=== PATIENT | male | born 1980 | race Caucasian/White ===

== ENCOUNTER 2018-06-18 23:35 | Observation (INO) ==
[2018-06-18] MEDS ORDERED: 0.9 % Sodium Chloride 1,000 ML ONE (23:59)
[2018-06-19] MEDS ORDERED: Isovue-370 500 ML INFUS..BTL IV ONE (00:10)
--- NOTE | 2018-06-19 00:17 | Emergency Department Note ---
Disposition Clinical Impression: TIA (transient ischemic attack) HTN (hypertension) Qualifiers: Hypertension type: unspecified Qualified Code(s): I10 - Essential (primary) hypertension Disposition: Admitted As Inpatient Condition: Fair General Adult HPI - General Chief complaint: ED General Medical Stated complaint: "I DONT FEEL RIGHT" Time Seen by Provider: 06/19/18 00:03 Source: patient Mode of arrival: EMS Limitations: no limitations Nursing Notes Reviewed: Yes Vital Signs Reviewed: Yes - History of Present Illness HPI Narrative: 37 year old male with history of hypertension presents for evaluation of "not feeling right". Patient states that he had this similar symptom that occurred just prior to arrival by an hour ago. Notes he had a strange sensation in the back of his head. Notes that he has had difficulty with his voice. Symptoms did improve initially but then recurred while in the ED. Patient states that he feels that there is something wrong. Patient is not able to accurately describe the feeling. Denies any headache. Denies any nausea vomiting. No focal deficits or weaknesses. Patient family at bedside states that these have been difficulty with articulating his words but no slurred speech or facial droop. Patient is not a blood thinners. Patient is unaware of whether or not he took his blood pressure medication earlier today. No history of blood thinners. Pain Scale: 0 - Related Data Home Medications Medication Instructions Recorded Confirmed Esomeprazole Magnesium [Nexium] 20 mg PO DAILY 06/19/18 06/19/18 HydrOXYzine Pamoate [Vistaril] 25 mg PO Q6HR PRN 06/19/18 06/19/18 Metoprolol [Lopressor] 75 mg PO DAILY 06/19/18 06/19/18 Allergies Allergy/AdvReac Type Severity Reaction Status Date / Time No Known Allergies Allergy Verified 06/18/18 23:48 All systems ED: reviewed and negative except as stated. Constitutional: Denies: fever Cardiovascular: Denies: chest pain Respiratory: Denies: cough, dyspnea Gastrointestinal: Reports: abdominal pain. Denies: nausea, vomiting Past Medical History - Past Medical History Source: patient Medical history: Reports: GERD, hypertension Psychiatric history: Reports: no psych history - Social History Smoking Status: Never smoker Alcohol use: Reports: occasionally, recent Drug use: Reports: none Physical Exam - General Limitations: no limitations General appearance: alert, in no apparent distress - Head Head exam: atraumatic, normocephalic, normal inspection - Eye Eye exam: Present: normal appearance, PERRL, EOMI - ENT ENT exam: normal exam, mucous membranes moist - Neck Neck exam: Present: normal inspection, trachea midline - Chest Chest inspection: Present: normal inspection, symmetric chest wall rise - Respiratory Respiratory exam: Present: normal lung sounds bilaterally. Absent: respiratory distress - Cardiovascular Cardiovascular exam: Present: regular rate, normal rhythm - Abdominal Exam Abdominal exam: Absent: soft, Non-Tender, guarding, rebound - Extremities Exam Extremities exam: Present: normal inspection. Absent: pedal edema - Back Exam Back exam: Present: normal inspection - Neurological Exam Neurological exam: Present: alert, oriented X3, CN II-XII intact - Expanded Neurological Exam Patient oriented to: Present: person, place, time Speech: Present: fluid speech Cranial nerves: EOM function (II, III, IV, ): Normal, facial sensation (V): Normal, facial palsy (VII): Normal, spinal accessory function (XI): Normal, tongue deviation (XII): Normal Cerebellar function: finger to nose: Normal Motor strength - LUE: 5/5 Motor strength - RUE: 5/5 Motor strength - LLE: 5/5 Motor strength - RLE: 5/5 Sensory exam upper extremity: light touch: Normal Sensory exam lower extremity: light touch: Normal Coma Scale Eye Opening: Spontaneous Coma Scale Motor Response: Obeys Commands Coma Scale Verbal Response: Oriented Coma Scale Total: 15 - Skin Skin exam: Present: warm, dry, intact, normal color Course Course Narrative: Patient seen and examined. Patient states that symptoms were earlier today and then recurred in the ED. Notes not feeling right. Initial concerns for potential head bleed given the patient's symptoms. Stroke alert was activated. Patient NIH of 0. - Reevaluation(s) Reevaluation #1: Patient seen and examined. Patient is resting comfortably. Appears to be less agitated and restless. Patient's repeat blood pressure is improved. Patient received his home dose of metoprolol. Patient states that he does not feel that he is an alcoholic all. Typically drinks a couple beers a night Time: 01:37 - Consultations Consultation #1: Spoke with [facility] neurology who will see the patient. Time: 00:41 Consultation #2: Patient seen and examined. Time: 00:58 Vital Signs Temperature 99.1 F 06/18/18 23:41 Pulse Rate 123 06/18/18 23:41 Respiratory Rate 18 06/18/18 23:41 Blood Pressure 171/119 06/18/18 23:41 O2 Sat by Pulse Oximetry 94 06/18/18 23:41 Temperature 98.9 F 06/19/18 03:07 Pulse Rate 92 06/19/18 03:07 Respiratory Rate 16 06/19/18 03:07 Blood Pressure 151/98 06/19/18 03:07 O2 Sat by Pulse Oximetry 92 06/19/18 03:07 Oxygen Delivery Oxygen Delivery Room Air Medical Decision Making - MDM Narrative Medical decision making narrative: Patient presented for concerns of possible stroke. Stroke alert was initiated as the patient has had waxing and waning symptoms which appeared to worsen acutely in the ED. Patient was restless and agitated complaining of subjective symptoms related to the back of his head. Initial concerns for potential head bleed and stroke alert was called. Patient had a negative initial head CT. Patient did not have any slurred speech or aphasia but the patient states that he felt like he is having difficulty finding his words. [facility] neurology discussed the case with the patient. No TPA and felt that this is less likely related to a stroke but recommended observation with blood pressure control. NIH of 0. Patient's blood pressure was gradually decreased with his home blood pressure medication. Patient's labs are unremarkable clinically. Is unclear what caused the patient's symptoms earlier today however possibly related to his hypertension. Patient was not given aspirin as there was initial concerns for a bleed. Patient does metallic or use but does not appear to be in alcohol withdrawal. - Lab Data Lab results reviewed: Yes I reviewed the patient's lab results. Result diagrams: 06/19/18 00:05 Lab Results 06/19/18 06/19/18 06/19/18 Range/Units 00:05 00:05 00:05 WBC (4.3-11.1) K/mcL RBC (4.19-5.50) M/mcL Hgb (12.9-16.9) g/dL Hct (37.5-50.1) % MCV (83.0-100.0) fL MCH (28.0-33.3) pg MCHC (31.6-35.5) g/dL RDW (11.5-14.5) % Plt Count (140-400) K/mcL MPV (9.4-12.4) fL Immature Gran % (0-4) % Seg Neutrophils % % Lymphocytes % % Monocytes % % Eosinophils % % Basophils % % Neutrophils # (1.6-8.9) K/mcL Lymphocytes # (0.6-4.6) K/mcL Monocytes # (0.0-1.3) K/mcL Eosinophils # (0.0-0.6) K/mcL Basophils # (0.0-0.2) K/mcL PT 12.3 H (9.4-12.1) Seconds INR 1.1 APTT 31.8 (26.0-36.0) Seconds Total Bilirubin 0.9 (0.3-1.0) mg/dL Direct Bilirubin 0.3 H (0.0-0.2) mg/dL Indirect Bilirubin 0.6 (0.0-1.2) mg/dL AST 137 H (13-39) Units/L ALT 202 H (7-52) Units/L Alkaline Phosphatase 57 (34-104) Units/L Ammonia (16-53) mcmol/L Troponin I (< 0.04) ng/mL B-Natriuretic Peptide 25 (Less than 100) pg/mL Serum Total Protein 7.3 (6.4-8.9) g/dL Albumin 5.1 (3.5-5.7) g/dL Globulin 2.2 L (2.4-3.5) g/dL Albumin/Globulin Ratio 2.3 H (1.1-2.2) Amylase 41 (29-103) Units/L Lipase 39 (11-82) Units/L 06/19/18 06/19/18 06/19/18 Range/Units 00:05 00:05 00:05 WBC 6.9 (4.3-11.1) K/mcL RBC 5.23 (4.19-5.50) M/mcL Hgb 17.6 H (12.9-16.9) g/dL Hct 47.9 (37.5-50.1) % MCV 91.6 (83.0-100.0) fL MCH 33.7 H (28.0-33.3) pg MCHC 36.7 H (31.6-35.5) g/dL RDW 12.0 (11.5-14.5) % Plt Count 179 (140-400) K/mcL MPV 10.6 (9.4-12.4) fL Immature Gran % 0.4 (0-4) % Seg Neutrophils % 46.6 % Lymphocytes % 42.7 % Monocytes % 9.7 % Eosinophils % 0.0 % Basophils % 0.6 % Neutrophils # 3.2 (1.6-8.9) K/mcL Lymphocytes # 3.0 (0.6-4.6) K/mcL Monocytes # 0.7 (0.0-1.3) K/mcL Eosinophils # 0.0 (0.0-0.6) K/mcL Basophils # 0.0 (0.0-0.2) K/mcL PT (9.4-12.1) Seconds INR APTT (26.0-36.0) Seconds Total Bilirubin (0.3-1.0) mg/dL Direct Bilirubin (0.0-0.2) mg/dL Indirect Bilirubin (0.0-1.2) mg/dL AST (13-39) Units/L ALT (7-52) Units/L Alkaline Phosphatase (34-104) Units/L Ammonia 50 (16-53) mcmol/L Troponin I < 0.03 (< 0.04) ng/mL B-Natriuretic Peptide (Less than 100) pg/mL Serum Total Protein (6.4-8.9) g/dL Albumin (3.5-5.7) g/dL Globulin (2.4-3.5) g/dL Albumin/Globulin Ratio (1.1-2.2) Amylase (29-103) Units/L Lipase (11-82) Units/L - Radiology Data Radiology results reviewed: Yes I reviewed the patient's radiology results. Head CT 06/19/18 00:03 IMPRESSION: No acute intracranial abnormality. Critical results were called by Dr. Chet Matos MD to Maurice Shepard on 06/19/2018 at 00:33. D/ / Chet Matos MD / Chet Matos MD Interpreting Provider: Chet Matos MD Head CTA 06/19/18 00:10 IMPRESSION: Unremarkable CTA of the head and neck. D/ / Preston Velazquez / Preston Velazquez Interpreting Provider: Preston Velazquez Neck CTA 06/19/18 00:11 IMPRESSION: Unremarkable CTA of the head and neck. D/ / Preston Velazquez / Preston Velazquez Interpreting Provider: Preston Velazquez Chest X-Ray 06/19/18 23:52 IMPRESSION: No acute disease. D/ / Sukhwinder Wagner MD / Sukhwinder Wagner MD Interpreting Provider: Sukhwinder Wagner MD - EKG Data EKG #1 EKG attestation: Yes I reviewed and interpreted this EKG. EKG shows normal: sinus rhythm Rate: tachycardia Rhythm: NSR [place]/QRS: normal Interpretation: no acute changes, nonspecific ST-T wave changes S.Elham - Gilberto Situation: Demographics Background: Presenting Complaint Assessment: Vital Signs, Course and respsone to treatment, Patient/Family Expectation Recommendation: Barrier(s) to disposition, Recommendation based on pending studies, treatments, or consults S.B.Alexis Report Given to: Dr. Fab Macias Repor Time: 01:23
[2018-06-19 00:40] LABS: INR 1.1; Prothrombin Time 12.3 Seconds (9.4-12.1)
[2018-06-19 00:43] LABS: Activated Partial Thrombo Time 31.8 Seconds (26.0-36.0)
[2018-06-19 00:45] LABS: Albumin 5.1 g/dL (3.5-5.7); Albumin/Globulin Ratio 2.3 (1.1-2.2); Bilirubin,Direct 0.3 mg/dL (0.0-0.2); Bilirubin,Indirect 0.6 mg/dL (0.0-1.2); Bilirubin,Total 0.9 mg/dL (0.3-1.0); Globulin 2.2 g/dL (2.4-3.5); Total Protein 7.3 g/dL (6.4-8.9)
[2018-06-19 00:50] LABS: Basophils % 0.6 %; Hematocrit 47.9 % (37.5-50.1); Hemoglobin 17.6 g/dL (12.9-16.9); Immature Granulocytes % 0.4 % (0-4); Lymphocytes % 42.7 %; Mean Corpuscular HGB Conc 36.7 g/dL (31.6-35.5); Mean Corpuscular Hemoglobin 33.7 pg (28.0-33.3); Mean Corpuscular Volume 91.6 fL (83.0-100.0); Mean Platelet Volume 10.6 fL (9.4-12.4); Monocytes # 0.7 K/mcL (0.0-1.3); Monocytes % 9.7 %; Neutrophils # 3.2 K/mcL (1.6-8.9); Platelet Count 179 K/mcL (140-400); Red Blood Count 5.23 M/mcL (4.19-5.50); Segmented Neutrophils % 46.6 %
[2018-06-19] MEDS ORDERED: *HR* Labetalol 20 MG/4 ML SYRINGE IVP ONE (01:13)
[2018-06-19] MEDS ORDERED: hydrOXYzine pamoate 25 MG CAPSULE PO PRN (02:22)
--- NOTE | 2018-06-19 02:52 | Internal Med History&Physical ---
Date of Encounter: 06/19/18 Time of Encounter: 02:50 Internal Medicine - H&P: HPI Chief complaint: AMS Admitted From: Home Plans for Post Hospital Care: Home History of present illness: 37 year old male with history of hypertension and panic attacks who was brought in for evaluation of "not feeling right". As per patients they were having dinner with friends when he stated that he didnt feel well and need to lay down. When she saw him 20 minutes later he asked that an ambulance be called because he felt something was wrong that he has never felt before. He reported having a strange sensation at the back of his head like numbness. He also became agitated and followed by a crying spell which he cannot explain. Apparently the symptoms improved and then recurred again in the ER, calming down only after undergoing CT scan and calling a stroke alert. On arrival he was notably hypertensive and received 10mg of labetalol. He had a CTA neck and head done as part of the stroke alert and was referred for admission. On my assessment he was sitting up in bed in no acute distress reporting feeling well and without complaints at this time. He denies any chest pain, headaches, and dizziness. No focal deficits or weaknesses. As per he just had difficulty articulating his symptoms. Past Med Surg Social Fam HX - Past Medical History Medical history: GERD, hypertension Psychiatric history: no psych history - Past Surgical History Surgical History: herniorrhaphy, orthopedic, other Additional surgical history: KNEE SCOPE - Social History Smoking Status: Former smoker Smokeless Tobacco Status: No Alcohol use: occasionally, recent Drug use: none Internal Medicine - H&P: Meds Esomeprazole Magnesium [Nexium] 20 mg PO DAILY 06/19/18 [History] HydrOXYzine Pamoate [Vistaril] 25 mg PO Q6HR PRN 06/19/18 [History] Metoprolol [Lopressor] 75 mg PO DAILY 06/19/18 [History] 3 Allergy/AdvReac Type Severity Reaction Status Date / Time No Known Allergies Allergy Verified 06/18/18 23:48 All Systems PM: A 10-system review of systems was performed and is negative for pertinent findings except as documented above in the HPI. - Constitutional Vitals: Temp Pulse Resp BP Pulse Ox 99.1 F 107 18 145/98 98 06/18/18 23:41 06/19/18 01:10 06/19/18 02:00 06/19/18 02:00 06/19/18 01:10 Exam: Vitals: Reviewed General: We will developed white male sitting comfortably in bed in no acute distress Skin: Warm and supple HEENT: Moist mucous membranes. No conjunctivae pallor. Neck: No lymphadenopathy. No JVD. No carotid bruits. No palpable thyroid. Chest: Normal thoracic expansion. Normal breath sounds. Clear to auscultation. Heart: Normal S1 & S2; rhythmic. No rubs or murmurs. Abdomen: Non-distended, soft and non-tender to palpation. No peritoneal reaction. Liver is normal in size. Spleen is not palpable. Extremities: No clubbing, cyanosis or edema. No calf tenderness. Normal distal pulses. Neurological: Awake, alert and oriented to person, place and time. No focal deficits. Psych: Affect appropriate. Internal Med - H&P Results - Labs CBC & Chem 7: 06/19/18 00:05 - Impressions ITS Impressions Chest X-Ray 06/19/18 23:52 IMPRESSION: No acute disease. D/ / Sukhwinder Wagner MD / Sukhwinder Wagner MD Interpreting Provider: Sukhwinder Wagner MD - Assessment and plan (1) Panic attack Current Visit: Yes Status: Acute Assessment and plan: My assessment is that the patient's symptoms were not consistent with a TIA/CVA that was the working ED diagnosis but rather with a panic attack. He was equally evaluated by [facility] with the belief that this was no a vascular attack. Will observe him overnight. CT scans negative. No indication for MRI at this time. If clinically well by morning, he can follow up with PCP as an outpatient. (2) Hypertensive urgency Current Visit: Yes Status: Acute Assessment and plan: The patient reports more of a white-coat HTN. His BP levels have improved with normalization of his mental status. Will resume his home dose of metoprolol tomorrow. (3) DVT prophylaxis Current Visit: Yes Status: Acute Assessment and plan: SubQ heparin ordered. - Time Spent With Patient Total time spent is greater than 50% in coordination of care (as documented) at patient's floor/unit and/or counseling patient: Greater than 35 minutes
--- NOTE | 2018-06-19 04:35 | Emergency Department Note ---
Disposition Clinical Impression: TIA (transient ischemic attack) HTN (hypertension) Qualifiers: Hypertension type: unspecified Qualified Code(s): I10 - Essential (primary) hypertension Disposition: Admitted As Inpatient Condition: Fair General Adult HPI - General Chief complaint: ED General Medical Stated complaint: "I DONT FEEL RIGHT" Time Seen by Provider: 06/19/18 00:03 Source: patient Mode of arrival: EMS Limitations: no limitations Nursing Notes Reviewed: Yes Vital Signs Reviewed: Yes - History of Present Illness Pain Scale: 0 - Related Data Home Medications Medication Instructions Recorded Confirmed Esomeprazole Magnesium [Nexium] 20 mg PO DAILY 06/19/18 06/19/18 HydrOXYzine Pamoate [Vistaril] 25 mg PO Q6HR PRN 06/19/18 06/19/18 Metoprolol [Lopressor] 75 mg PO DAILY 06/19/18 06/19/18 Allergies Allergy/AdvReac Type Severity Reaction Status Date / Time No Known Allergies Allergy Verified 06/18/18 23:48 Constitutional: Denies: fever Cardiovascular: Denies: chest pain Respiratory: Denies: cough, dyspnea Gastrointestinal: Reports: abdominal pain. Denies: nausea, vomiting Past Medical History - Past Medical History Medical history: Reports: GERD, hypertension Surgical history: Reports: herniorrhaphy, orthopedic, other Psychiatric history: Reports: no psych history - Social History Smoking Status: Never smoker Smokeless Tobacco Status: No Alcohol use: Reports: occasionally, recent Drug use: Reports: none Physical Exam - General Limitations: no limitations General appearance: alert, in no apparent distress Course Vital Signs Temperature 99.1 F 06/18/18 23:41 Pulse Rate 123 06/18/18 23:41 Respiratory Rate 18 06/18/18 23:41 Blood Pressure 171/119 06/18/18 23:41 O2 Sat by Pulse Oximetry 94 06/18/18 23:41 Temperature 98.9 F 06/19/18 03:07 Pulse Rate 92 06/19/18 03:07 Respiratory Rate 16 06/19/18 03:07 Blood Pressure 151/98 06/19/18 03:07 O2 Sat by Pulse Oximetry 92 06/19/18 03:07 Oxygen Delivery Oxygen Delivery Room Air Medical Decision Making - Lab Data Lab results reviewed: Yes I reviewed the patient's lab results. Result diagrams: 06/19/18 00:05 Lab Results 06/19/18 06/19/18 06/19/18 Range/Units 00:05 00:05 00:05 WBC (4.3-11.1) K/mcL RBC (4.19-5.50) M/mcL Hgb (12.9-16.9) g/dL Hct (37.5-50.1) % MCV (83.0-100.0) fL MCH (28.0-33.3) pg MCHC (31.6-35.5) g/dL RDW (11.5-14.5) % Plt Count (140-400) K/mcL MPV (9.4-12.4) fL Immature Gran % (0-4) % Seg Neutrophils % % Lymphocytes % % Monocytes % % Eosinophils % % Basophils % % Neutrophils # (1.6-8.9) K/mcL Lymphocytes # (0.6-4.6) K/mcL Monocytes # (0.0-1.3) K/mcL Eosinophils # (0.0-0.6) K/mcL Basophils # (0.0-0.2) K/mcL PT 12.3 H (9.4-12.1) Seconds INR 1.1 APTT 31.8 (26.0-36.0) Seconds Total Bilirubin 0.9 (0.3-1.0) mg/dL Direct Bilirubin 0.3 H (0.0-0.2) mg/dL Indirect Bilirubin 0.6 (0.0-1.2) mg/dL AST 137 H (13-39) Units/L ALT 202 H (7-52) Units/L Alkaline Phosphatase 57 (34-104) Units/L Ammonia (16-53) mcmol/L Troponin I (< 0.04) ng/mL B-Natriuretic Peptide 25 (Less than 100) pg/mL Serum Total Protein 7.3 (6.4-8.9) g/dL Albumin 5.1 (3.5-5.7) g/dL Globulin 2.2 L (2.4-3.5) g/dL Albumin/Globulin Ratio 2.3 H (1.1-2.2) Amylase 41 (29-103) Units/L Lipase 39 (11-82) Units/L 06/19/18 06/19/18 06/19/18 Range/Units 00:05 00:05 00:05 WBC 6.9 (4.3-11.1) K/mcL RBC 5.23 (4.19-5.50) M/mcL Hgb 17.6 H (12.9-16.9) g/dL Hct 47.9 (37.5-50.1) % MCV 91.6 (83.0-100.0) fL MCH 33.7 H (28.0-33.3) pg MCHC 36.7 H (31.6-35.5) g/dL RDW 12.0 (11.5-14.5) % Plt Count 179 (140-400) K/mcL MPV 10.6 (9.4-12.4) fL Immature Gran % 0.4 (0-4) % Seg Neutrophils % 46.6 % Lymphocytes % 42.7 % Monocytes % 9.7 % Eosinophils % 0.0 % Basophils % 0.6 % Neutrophils # 3.2 (1.6-8.9) K/mcL Lymphocytes # 3.0 (0.6-4.6) K/mcL Monocytes # 0.7 (0.0-1.3) K/mcL Eosinophils # 0.0 (0.0-0.6) K/mcL Basophils # 0.0 (0.0-0.2) K/mcL PT (9.4-12.1) Seconds INR APTT (26.0-36.0) Seconds Total Bilirubin (0.3-1.0) mg/dL Direct Bilirubin (0.0-0.2) mg/dL Indirect Bilirubin (0.0-1.2) mg/dL AST (13-39) Units/L ALT (7-52) Units/L Alkaline Phosphatase (34-104) Units/L Ammonia 50 (16-53) mcmol/L Troponin I < 0.03 (< 0.04) ng/mL B-Natriuretic Peptide (Less than 100) pg/mL Serum Total Protein (6.4-8.9) g/dL Albumin (3.5-5.7) g/dL Globulin (2.4-3.5) g/dL Albumin/Globulin Ratio (1.1-2.2) Amylase (29-103) Units/L Lipase (11-82) Units/L - Radiology Data Radiology results reviewed: Yes I reviewed the patient's radiology results. Head CT 06/19/18 00:03 IMPRESSION: No acute intracranial abnormality. Critical results were called by Dr. Chet Matos MD to Maurice Shashank Drea on 06/19/2018 at 00:33. D/ / Chet Matos MD / Chet Matos MD Interpreting Provider: Chet Matos MD Head CTA 06/19/18 00:10 IMPRESSION: Unremarkable CTA of the head and neck. D/ / Preston Velazquez / Preston Velazquez Interpreting Provider: Preston Velazquez Neck CTA 06/19/18 00:11 IMPRESSION: Unremarkable CTA of the head and neck. D/ / Preston Velazquez / Preston Velazquez Interpreting Provider: Preston Velazquez Chest X-Ray 06/19/18 23:52 IMPRESSION: No acute disease. D/ / Sukhwinder Wagner MD / Sukhwinder Wagner MD Interpreting Provider: Sukhwinder Wagner MD Critical Care Time Critical Care Time: Yes Total Critical Care Time: 40 Attestation: Critical care performed: Time is exclusive of separately billable procedures. Time includes: direct patient care, patient reassessment, coordination of patient care, interpretation of data (laboratory data, radiology data, and respiratory data), review of patient's medical records, medical consultation and documentation of patient care. Procedures included in critical care time: Procedures excluded from critical care time: Attestation Statement - Attestation Attestation: IAkil MD, personally evaluated this patient and discussed their management with the resident physician. I reviewed the resident's note and agree with the documented findings, medical decision making, and plan of care. 37-year-old male presents to the emergency department with a complaint of just not feeling right in the back of his head. Symptoms started about one hour prior to arrival. Patient became short of breath and hyperventilating and stated that he just felt like something was wrong in the back of his head. He denies actual headache or pain. No neck pain. No fall or injury. Symptoms had improved when he arrived here initially but shortly after arrival the symptoms returned. Patient developed dysphagia. He was able to talk but had difficulty getting his words out that he wanted to say. He kept saying repeatedly "I just do not feel right". Patient does admit to drinking some alcohol earlier tonight which was not anything unusual for him. He denies drug use. No history of any significant medical problems in the past. On examination patient is a well-developed well-nourished male who appears very anxious. He is having difficulty with his speech at time of my examination and seems a little agitated. There is no cyanosis or diaphoresis. Head is atraumatic. Neck is supple and nontender with full range of motion. PERRLA. EOMs intact. Mucous membranes are moist. Cranial nerves II through XII are intact. Equal traffic worker strength bilaterally. No gross focal motor or sensory deficits. Chest is nontender to palpation. Breath sounds are clear and equal bilaterally. Heart regular with a moderate tachycardia. Abdomen soft and nontender with normal bowel sounds. A stroke alert was called. Patient was evaluated by the [facility] stroke neurologist via the stroke robot. TPA was not indicated and she felt this was not likely a stroke but recommended admission and observation. Head CT negative. CTA of the head and neck negative. Labs reviewed. The hospitalist, Dr. Sanon, was consulted and accepted admission of the patient.
[2018-06-19] MEDS ORDERED: *HR* Heparin 5,000 UNIT/ML VIAL SQ SCH (06:00)
[2018-06-19 06:55] VITALS: BP 120/72
--- NOTE | 2018-06-19 08:23 | Discharge Summary ---
Date of Encounter: 06/19/18 Time of Encounter: 08:20 - Discharge Diagnosis (1) Hypertensive urgency Priority: Primary Status: Acute Assessment and Plan: 37 year old male with history of hypertension and panic attacks who was brought in for evaluation of "not feeling right". As per patients they were having dinner with friends when he stated that he didnt feel well and need to lay down. When she saw him 20 minutes later he asked that an ambulance be called because he felt something was wrong that he has never felt before. He reported having a strange sensation at the back of his head like numbness. He also became agitated and followed by a crying spell which he cannot explain. Apparently the symptoms improved and then recurred again in the ER, calming down only after undergoing CT scan and calling a stroke alert. He was assessed to rule out stroke and a CT head was done which came back negative. By the next morning he said he felt much better and would like to follow with his primary care. He did however complain of some ringing at the back of his head. He was counseled to follow up with his PCP and possibly get an MRI as an outpatient. (2) Panic attack Priority: Secondary Status: Acute (3) DVT prophylaxis Priority: Secondary Status: Acute Hospital course: Mr. Suarez is a 37 year old male - Time Spent with Patient Total time spent providing and/or coordinating discharge services: - Discharge Medications Home Medications: Esomeprazole Magnesium [Nexium] 20 mg PO DAILY 06/19/18 [History] HydrOXYzine Pamoate [Vistaril] 25 mg PO Q6HR PRN 06/19/18 [History] Metoprolol [Lopressor] 75 mg PO DAILY 06/19/18 [History] Allergies/Adverse Reactions: 3 Allergy/AdvReac Type Severity Reaction Status Date / Time No Known Allergies Allergy Verified 06/18/18 23:48 Date of admission: 06/19/18 01:43 Primary care physician: Kemar Jama, DO - Constitutional Vitals: Temp Pulse Resp BP Pulse Ox 98.5 F 72 19 120/72 94 06/19/18 06:53 06/19/18 06:53 06/19/18 06:53 06/19/18 06:53 06/19/18 06:53 Exam: Vitals: Reviewed General: We will developed white male sitting comfortably in bed in no acute distress Skin: Warm and supple HEENT: Moist mucous membranes. No conjunctivae pallor. Neck: No lymphadenopathy. No JVD. No carotid bruits. No palpable thyroid. Chest: Normal thoracic expansion. Normal breath sounds. Clear to auscultation. Heart: Normal S1 & S2; rhythmic. No rubs or murmurs. Abdomen: Non-distended, soft and non-tender to palpation. No peritoneal reaction. Liver is normal in size. Spleen is not palpable. Extremities: No clubbing, cyanosis or edema. No calf tenderness. Normal distal pulses. Neurological: Awake, alert and oriented to person, place and time. No focal deficits. Psych: Affect appropriate. - Patient Status Disposition: Home, Self-Care Condition: Fair - Discharge Instructions Instructions: Chronic Hypertension (DC) Follow Up With: Kemar Jama DO [Primary Care Provider] - 06/20/18 1:30 pm
--- NOTE | 2018-06-23 11:09 | Electrocardiograph Report ---
[address] [address] Test Date: 2018-06-18 Pat Name: Jose Suarez Department: [id number] Room: 3B Gender: M General Ophthalmologist: : [id number] Requested By: Akil Osman Order Number: [id number] Reading MD: Livier Dockery Measurements Intervals [place] Rate: 123 P: 46 MD: 164 QRS: 54 QRSD: 78 T: -24 QT: 298 QTc: 427 Interpretive Statements Sinus tachycardia Borderline repolarization abnormality Electronically Signed On 06-23-2018 11:07:53 EDT by Livier Dockery
== END 2018-06-19 09:26 | disposition home or self-care (01) ==
LOC: 3BNU 23:35 → EMEROOARM 23:35 → 3BNU 06-19 02:05
PROVIDERS: ADMIT Internal Medicine; ATTEND Internal Medicine

== ENCOUNTER 2019-11-19 15:27 | Inpatient (IN) ==
[2019-11-19] MEDS ORDERED: Morphine Sulfate 2 MG/ML SYRINGE IVP ONE (15:42)
[2019-11-19] MEDS ORDERED: Ondansetron 4 MG/2 ML VIAL IVP ONE (15:42)
[2019-11-19] MEDS ORDERED: Isovue-370 500 ML BOTTLE IVP ONE (15:43)
[2019-11-19] MEDS ORDERED: 0.9 % Sodium Chloride 1,000 ML IVC ONE (15:51)
[2019-11-19] MEDS ORDERED: 0.9 % Sodium Chloride 1,000 ML IVC SCH (16:00)
[2019-11-19 16:16] LABS: Basophils # 0.1 K/mcL (0.0-0.2); Basophils % 0.6 %; Hematocrit 46.1 % (37.5-50.1); Hemoglobin 16.3 g/dL (12.9-16.9); Immature Granulocytes % 1.1 % (0-4); Lymphocytes # 0.8 K/mcL (0.6-4.6); Mean Corpuscular HGB Conc 35.4 g/dL (31.6-35.5); Mean Corpuscular Hemoglobin 34.6 pg (28.0-33.3); Mean Corpuscular Volume 97.9 fL (83.0-100.0); Mean Platelet Volume 10.6 fL (9.4-12.4); Monocytes # 0.9 K/mcL (0.0-1.3); Neutrophils # 6.5 K/mcL (1.6-8.9); Nucleated Red Blood Cells 0.2 /100 WBC (0); Platelet Count 116 K/mcL (140-400); Red Blood Count 4.71 M/mcL (4.19-5.50); Red Cell Distribution Width 13.1 % (11.5-14.5); Segmented Neutrophils % 78.3 %; White Blood Count 8.3 K/mcL (4.3-11.1)
[2019-11-19 16:19] LABS: INR 1.1; Prothrombin Time 12.1 Seconds (9.4-12.1)
[2019-11-19 16:21] LABS: Activated Partial Thrombo Time 28.6 Seconds (26.0-36.0)
[2019-11-19 17:08] LABS: Alanine Aminotransferase 137 Units/L (7-52); Albumin 5.3 g/dL (3.5-5.7); Albumin/Globulin Ratio 2.1 (1.1-2.2); Alkaline Phosphatase 58 Units/L (34-104); Aspartate Amino Transferase 118 Units/L (13-39); BUN/Creatinine Ratio 8 (6-26); Bilirubin,Direct 0.9 mg/dL (0.0-0.2); Bilirubin,Indirect 1.4 mg/dL (0.0-1.0); Bilirubin,Total 2.3 mg/dL (0.3-1.0); Blood Urea Nitrogen 6 mg/dL (6-20); Calcium 10.1 mg/dL (8.6-10.3); Carbon Dioxide 13 mEq/L (23-29); Chloride 94 mEq/L (98-107); Globulin 2.5 g/dL (2.4-3.5); Glucose 128 mg/dL (70-105); Lipase > 1800 Units/L (11-82); Osmolality,Calculated 277 (280-300); Potassium 3.9 mEq/L (3.5-5.1); Sodium 134 mEq/L (136-145); Total Protein 7.8 g/dL (6.4-8.9); eGFR For African Americans > 60 (> 60); eGFR For Non-African Americans > 60 (> 60)
[2019-11-19] MEDS ORDERED: *HR* HYDROmorphone (PF) 1 MG/ML SYRINGE IVP ONE (17:18)
[2019-11-19] MEDS ORDERED: *HR* Promethazine 25 MG/ML VIAL IVP PRN (18:08)
[2019-11-19] MEDS ORDERED: Naloxone 0.4 MG/ML INJ IVP PRN (18:08)
[2019-11-19 18:40] LABS: Ethanol < 10 mg/dL (Less than 10); Triglycerides 271 mg/dL (< 150)
[2019-11-19] MEDS ORDERED: ALTEPLASE IVPB ONE (18:46)
[2019-11-19] MEDS: Ringers Solution, Lactated 1,000 ML IVC SCH (20:01)
[2019-11-19 20:50] LABS: Hepatitis B Surface Antigen Nonreactive (Nonreactive)
[2019-11-19 21:18] LABS: Hepatitis C Virus Antibody Nonreactive (Nonreactive)
[2019-11-19 21:20] LABS: Hepatitis B Core IgM Nonreactive (Nonreactive)
[2019-11-19 21:22] LABS: Hepatitis A Antibody IgM Nonreactive (Nonreactive)
[2019-11-19] MEDS: Ketorolac 15 MG/ML VIAL IVP PRN (21:54)
[2019-11-19] MEDS ORDERED: *HR* Metoprolol 5 MG/5 ML VIAL IVP ONE (22:47)
[2019-11-20] MEDS: Ringers Solution, Lactated 1,000 ML IVC SCH ×2 (01:00→06:57)
[2019-11-20] MEDS: *HR* HYDROmorphone 2 MG/ML SYRINGE IVP PRN ×2 (02:37→07:31)
[2019-11-20] MEDS: Ketorolac 15 MG/ML VIAL IVP PRN (03:56)
[2019-11-20 05:30] LABS: Basophils % 0.2 %; Immature Granulocytes % 0.7 % (0-4)
[2019-11-20 05:32] LABS: Eosinophils % 0.1 %; Hematocrit 47.7 % (37.5-50.1); Hemoglobin 16.8 g/dL (12.9-16.9); Immature Platelets 7.1 % (1.1-6.1); Lymphocytes # 0.2 K/mcL (0.6-4.6); Lymphocytes % 2.5 %; Mean Corpuscular HGB Conc 35.2 g/dL (31.6-35.5); Mean Corpuscular Hemoglobin 34.7 pg (28.0-33.3); Mean Corpuscular Volume 98.6 fL (83.0-100.0); Mean Platelet Volume 11.1 fL (9.4-12.4); Monocytes # 0.6 K/mcL (0.0-1.3); Monocytes % 6.9 %; Red Blood Count 4.84 M/mcL (4.19-5.50); Segmented Neutrophils % 89.6 %
[2019-11-20 05:33] LABS: Neutrophils # 8.1 K/mcL (1.6-8.9); Platelet Count 69 K/mcL (140-400)
[2019-11-20 05:54] LABS: BUN/Creatinine Ratio 5 (6-26); Blood Urea Nitrogen 4 mg/dL (6-20); Calcium 9.4 mg/dL (8.6-10.3); Carbon Dioxide 14 mEq/L (23-29); Chloride 94 mEq/L (98-107); Glucose 202 mg/dL (70-105); Magnesium 1.6 mg/dL (1.6-2.6); Osmolality,Calculated 273 (280-300); Phosphorous 1.6 mg/dL (2.7-4.5); Potassium 4.5 mEq/L (3.5-5.1); Sodium 130 mEq/L (136-145); eGFR For African Americans > 60 (> 60); eGFR For Non-African Americans > 60 (> 60)
[2019-11-20 05:59] LABS: Bilirubin,Direct 1.8 mg/dL (0.0-0.2); Bilirubin,Indirect 1.9 mg/dL (0.0-1.0); Bilirubin,Total 3.7 mg/dL (0.3-1.0); Globulin 2.5 g/dL (2.4-3.5); Total Protein 7.5 g/dL (6.4-8.9)
[2019-11-20] MEDS ORDERED: *HR* Heparin 5,000 UNIT/ML VIAL SQ SCH (06:00)
[2019-11-20] MEDS ORDERED: 0.9 % Sodium Chloride 1,000 ML IVC SCH (07:45)
[2019-11-20] MEDS ORDERED: *HR* Metoprolol 5 MG/5 ML VIAL IVP PRN (08:14)
[2019-11-20] MEDS ORDERED: Metoprolol XL (24 HR) Succ 50 MG TAB.ER.24H PO SCH (09:00)
[2019-11-20] MEDS ORDERED: NON-FORMULARY MEDICATION 1 EACH EACH (Esomeprazole Magnesium [Nexium] 40 MG) PO SCH (09:00)
[2019-11-20] MEDS: 0.9 % Sodium Chloride 1,000 ML IVC SCH ×3 (09:16→20:46)
[2019-11-20] MEDS: Ketorolac 15 MG/ML VIAL IVP SCH ×3 (09:17→18:02)
[2019-11-20] MEDS: Pantoprazole 40 MG VIAL IVP SCH ×2 (09:17→18:03)
[2019-11-20 09:23] LABS: Estimated Average Glucose 117 mg/dl
[2019-11-20] MEDS: *HR* HYDROmorphone (PF) 1 MG/ML SYRINGE IVP PRN ×3 (10:59→22:17)
[2019-11-20 12:45] LABS: Bilirubin,Urine Moderate (Negative); Blood,Urine Moderate (Negative); Clarity,Urine Cloudy (Clear); Color,Urine Orange (Yellow); Glucose,Urine (UA) >=1000 mg/dL (Normal); Ketones,Urine >=160 mg/dL (Negative); Leukocyte Esterase,Urine Trace (Negative); Nitrite,Urine Positive (Negative); Protein,Urine 100 mg/dL (Neg-Trace); Specific Gravity,Urine > 1.030 (1.010-1.025); Urobilinogen,Urine Normal (Normal)
[2019-11-20 12:49] LABS: Bacteria,Urine None Seen per hpf (None-Few); Squamous Epithelial Cell,Urine Many per lpf (None-Few)
[2019-11-20] MEDS ORDERED: *HR* LORazepam 2 MG/ML VIAL IVP PRN ×3 (13:30)
[2019-11-20 13:39] LABS: VBG HCO3 13 mEq/L (21-27); VBG PCO2 25 mmHg (41-51); VBG PH 7.33 pH Units (7.32-7.42); VBG PO2 118 mmHg (25-50)
[2019-11-20 14:25] LABS: Amphetamine Screen,Urine Negative ng/mL (Cutoff=1000); Barbiturate Screen,Urine Negative ng/mL (Cutoff=200); Benzodiazepines Screen,Urine Negative ng/mL (Cutoff=200); Cannabinoid Screen,Urine Negative ng/mL (Cutoff = 50); Cocaine Screen,Urine Negative ng/mL (Cutoff= 300); Opiate Screen,Urine Positive ng/mL (Cutoff=300); Phencyclidine Screen,Urine Negative ng/mL (Cutoff=25)
[2019-11-20 15:05] LABS: Granular Casts,Urine Few per lpf (None Seen); Hyaline Casts,Urine Few per lpf (None-Few); Mucus,Urine Few per lpf (Few); RBC,Urine 0-3 per hpf (0-3); Yeast,Urine Few per hpf (None Seen)
[2019-11-20] MEDS: Piperacillin/Tazobactam 3.375 GM in 0.9 % Sodium Chloride Mini Bag 100 ML IVPB SCH ×2 (16:20→18:04)
[2019-11-20 17:33] LABS: Adenovirus Not Detected (Not Detect); Bordetella Pertussis Not Detected (Not Detect); Chlamydophila pneumoniae Not Detected (Not Detect); Coronavirus 229E Not Detected (Not Detect); Coronavirus HKU1 Not Detected (Not Detect); Coronavirus NL63 Not Detected (Not Detect); Coronavirus OC43 Not Detected (Not Detect); Human Metapneumovirus Not Detected (Not Detect); Human Rhinovirus/Enterovirus Not Detected (Not Detect); Influenza A Subtype 2009 H1 Not Detected (Not Detect); Influenza B Not Detected (Not Detect); Mycoplasma pneumoniae Not Detected (Not Detect); Parainfluenza Virus 1 Not Detected (Not Detect); Parainfluenza Virus 2 Not Detected (Not Detect); Parainfluenza Virus 3 Not Detected (Not Detect); Parainfluenza Virus 4 Not Detected (Not Detect); Respiratory Syncytial Virus Not Detected (Not Detect)
[2019-11-20 18:34] LABS: Protein/Creatinine Ratio,Urine 4.25 mg/mg (0.00-0.20)
[2019-11-20 19:08] LABS: Complement C3 103 mg/dL (87-200)
[2019-11-21] MEDS: Piperacillin/Tazobactam 3.375 GM in 0.9 % Sodium Chloride Mini Bag 100 ML IVPB SCH ×3 (01:05→15:30)
[2019-11-21] MEDS ORDERED: *HR* LORazepam 2 MG/ML VIAL IVP ONE ×2 (05:32→10:04)
[2019-11-21 06:20] LABS: Immature Granulocytes % 0.7 % (0-4); Red Blood Count 4.45 M/mcL (4.19-5.50)
[2019-11-21 06:22] LABS: Basophils % 0.2 %; Hematocrit 43.4 % (37.5-50.1); Hemoglobin 15.3 g/dL (12.9-16.9); Lymphocytes # 0.2 K/mcL (0.6-4.6); Lymphocytes % 4.1 %; Mean Corpuscular HGB Conc 35.3 g/dL (31.6-35.5); Mean Corpuscular Hemoglobin 34.4 pg (28.0-33.3); Mean Corpuscular Volume 97.5 fL (83.0-100.0); Mean Platelet Volume 12.1 fL (9.4-12.4); Monocytes # 0.3 K/mcL (0.0-1.3); Monocytes % 5.9 %; Neutrophils # 5.2 K/mcL (1.6-8.9); Nucleated Red Blood Cells 0.3 /100 WBC (0); Red Cell Distribution Width 13.6 % (11.5-14.5); Segmented Neutrophils % 89.1 %; White Blood Count 5.8 K/mcL (4.3-11.1)
[2019-11-21 06:23] LABS: Platelet Count 53 K/mcL (140-400)
[2019-11-21 06:24] LABS: INR 1.5; Prothrombin Time 16.5 Seconds (9.4-12.1)
[2019-11-21] MEDS: Dexmedetomidine HCl 400 MCG/100 ML MLS IVC SCH ×4 (06:30→22:55)
[2019-11-21] MEDS ORDERED: Dexmedetomidine HCl 400 MCG/100 ML MLS IVC SCH (06:30)
[2019-11-21] MEDS ORDERED: Dexmedetomidine HCl 400 MCG/100 ML MLS IVC ONE (06:32)
[2019-11-21] MEDS ORDERED: *HR* Metoprolol 5 MG/5 ML VIAL IVP PRN ×2 (06:43→11:01)
[2019-11-21] MEDS ORDERED: Naloxone 0.4 MG/ML INJ IVP PRN (06:43)
[2019-11-21] MEDS ORDERED: 0.9 % Sodium Chloride 1,000 ML IVC SCH (06:43)
[2019-11-21] MEDS ORDERED: *HR* LORazepam 2 MG/ML VIAL IVP PRN ×3 (06:43)
[2019-11-21] MEDS ORDERED: *HR* Promethazine 25 MG/ML VIAL IVP PRN (06:43)
[2019-11-21] MEDS ORDERED: *HR* HYDROmorphone (PF) 1 MG/ML SYRINGE IVP PRN (06:43)
[2019-11-21 06:51] LABS: Large Platelets Present (Not Present); Platelet Estimate Decreased (Normal)
[2019-11-21 07:00] LABS: Alanine Aminotransferase 68 Units/L (7-52); Albumin 4.3 g/dL (3.5-5.7); Albumin/Globulin Ratio 1.8 (1.1-2.2); Alkaline Phosphatase 42 Units/L (34-104); Aspartate Amino Transferase 98 Units/L (13-39); BUN/Creatinine Ratio 10 (6-26); Bilirubin,Total 5.3 mg/dL (0.3-1.0); Blood Urea Nitrogen 11 mg/dL (6-20); Calcium 8.6 mg/dL (8.6-10.3); Carbon Dioxide 14 mEq/L (23-29); Chloride 97 mEq/L (98-107); Globulin 2.4 g/dL (2.4-3.5); Glucose 183 mg/dL (70-105); Osmolality,Calculated 274 (280-300); Potassium 4.6 mEq/L (3.5-5.1); Sodium 130 mEq/L (136-145); Total Protein 6.7 g/dL (6.4-8.9); eGFR For African Americans > 60 (> 60); eGFR For Non-African Americans > 60 (> 60)
[2019-11-21] MEDS ORDERED: Ringers Solution, Lactated 1,000 ML IVC SCH (08:15)
[2019-11-21] MEDS ORDERED: Thiamine (B-1) 100 MG TABLET PO SCH ×2 (09:00)
[2019-11-21] MEDS ORDERED: Folic Acid 1 MG TABLET PO SCH ×2 (09:00)
[2019-11-21] MEDS ORDERED: Metoprolol XL (24 HR) Succ 50 MG TAB.ER.24H PO SCH (09:00)
[2019-11-21 09:23] LABS: Lipase 652 Units/L (11-82)
[2019-11-21] MEDS ORDERED: *HR* Midazolam HCl 2 MG/2 ML VIAL IV ONE (10:04)
[2019-11-21] MEDS ORDERED: *HR* Succinylcholine 200 MG/10 ML VIAL IVP ONE (10:04)
[2019-11-21] MEDS ORDERED: *HR* Midazolam HCl 5 MG/5 ML VIAL IVP ONE ×3 (10:04→12:12)
[2019-11-21 10:07] LABS: ABG Base Excess -11 mEq/L (-2 to 3); ABG HCO3 15 mEq/L (21-27); ABG Oxygen Saturation 90 % (95-98); ABG PCO2 30 mmHg (35-45); ABG PO2 63 mmHg (85-104); ABG TCO2 15 mEq/L (20-26)
[2019-11-21 10:33] LABS: Creatine Kinase 334 Units/L (30-223)
[2019-11-21] MEDS ORDERED: Sodium Bicarbonate 150 MEQ in D5% in Water 1,000 ML IVC SCH (11:15)
[2019-11-21] MEDS ORDERED: Furosemide 40 MG/4 ML VIAL IVP ONE (11:24)
[2019-11-21] MEDS ORDERED: Furosemide 40 MG/4 ML VIAL ONE (11:28)
[2019-11-21] MEDS ORDERED: Lactulose Oral Soln 20 GM/30 ML UDC PO ONE (11:49)
[2019-11-21] MEDS ORDERED: Lactulose 200 GM, Sodium Chloride IRRigation 700 ML RC ONE (12:00)
[2019-11-21] MEDS: FentaNYL (PF) 1,000 MCG in 0.9 % Sodium Chloride 80 ML IVC SCH ×2 (12:41→20:25)
[2019-11-21 13:24] LABS: ABG Base Excess -9 mEq/L (-2 to 3); ABG HCO3 17 mEq/L (21-27); ABG Oxygen Saturation 100 % (95-98); ABG PCO2 32 mmHg (35-45); ABG PH 7.32 pH Units (7.32-7.45); ABG PO2 230 mmHg (85-104); ABG TCO2 18 mEq/L (20-26); Blood Gas Modality AF; Blood Gas VT 500 cc
[2019-11-21] MEDS ORDERED: Norepinephrine 4 MG in 0.9 % Sodium Chloride 250 ML IVC SCH (13:45)
[2019-11-21 15:56] LABS: Bilirubin,Urine Large (Negative); Blood,Urine Moderate (Negative); Clarity,Urine Turbid (Clear); Color,Urine Orange (Yellow); Glucose,Urine (UA) Normal (Normal); Ketones,Urine 15 mg/dL (Negative); Leukocyte Esterase,Urine Small (Negative); Nitrite,Urine Positive (Negative); PH,Urine 5.5 pH Units (5.0-8.0); Protein,Urine 100 mg/dL (Neg-Trace); Specific Gravity,Urine 1.029 (1.010-1.025); Urobilinogen,Urine Normal (Normal)
[2019-11-21 15:59] LABS: Bacteria,Urine None Seen per hpf (None-Few); RBC,Urine 0-3 per hpf (0-3); Squamous Epithelial Cell,Urine Many per lpf (None-Few); WBC,Urine 30-50 per hpf (0-3)
[2019-11-21] MEDS ORDERED: Perflutren Lipid Microsphere 1.3 ML in 0.9 % Sodium Chloride 8.7 ML IVP ONE (16:01)
[2019-11-21 16:16] LABS: Calcium 7.7 mg/dL (8.6-10.3); Potassium 4.2 mEq/L (3.5-5.1)
[2019-11-21 16:35] LABS: Hyaline Casts,Urine Few per lpf (None-Few)
[2019-11-21 16:36] LABS: Granular Casts,Urine Present per lpf (None Seen)
[2019-11-21 16:41] LABS: Sodium, Urine 50.2 mEq/L
[2019-11-21] MEDS ORDERED: Pantoprazole 40 MG VIAL IVP SCH (18:00)
[2019-11-21] MEDS ORDERED: Thiamine (B-1) 200 MG, Folic Acid 1 MG, MVI, adult with vitamin K 10 ML in 0.9 % Sodi... IVPB SCH (18:00)
[2019-11-21 18:15] LABS: ABG Base Excess -6 mEq/L (-2 to 3); ABG HCO3 19 mEq/L (21-27); ABG Oxygen Saturation 97 % (95-98); ABG PCO2 34 mmHg (35-45); ABG PH 7.35 pH Units (7.32-7.45); ABG PO2 92 mmHg (85-104); ABG TCO2 20 mEq/L (20-26); Blood Gas Modality AF; Blood Gas VT 500 cc
[2019-11-21 19:19] LABS: Potassium 3.9 mEq/L (3.5-5.1)
[2019-11-21 19:23] LABS: Troponin I 6.71 ng/mL (< 0.04)
[2019-11-21] MEDS ORDERED: Artificial Tears SOLN 15 ML BOTTLE BOTH EYES PRN (19:26)
[2019-11-21] MEDS ORDERED: *HR* Heparin 5,000 UNIT/ML VIAL IVP PRN ×2 (20:16)
[2019-11-21] MEDS ORDERED: Heparin 25,000 UNIT/250 ML D5W 25,000 UNIT/250 ML IV.SOLN IVC SCH (20:30)
[2019-11-21 20:31] LABS: Bilirubin,Direct 3.6 mg/dL (0.0-0.2); Bilirubin,Indirect 2.1 mg/dL (0.0-1.0); Bilirubin,Total 5.7 mg/dL (0.3-1.0)
[2019-11-21 21:05] LABS: INR 1.3; Prothrombin Time 14.5 Seconds (9.4-12.1)
[2019-11-21 21:13] LABS: Hematocrit 33.6 % (37.5-50.1); Mean Corpuscular HGB Conc 33.9 g/dL (31.6-35.5); Mean Corpuscular Hemoglobin 34.7 pg (28.0-33.3); Mean Corpuscular Volume 102.1 fL (83.0-100.0); Mean Platelet Volume 11.9 fL (9.4-12.4); Red Blood Count 3.29 M/mcL (4.19-5.50); Red Cell Distribution Width 13.9 % (11.5-14.5); White Blood Count 3.7 K/mcL (4.3-11.1)
[2019-11-21 21:14] LABS: Hemoglobin 11.4 g/dL (12.9-16.9); Platelet Count 41 K/mcL (140-400)
[2019-11-21] MEDS: Chlorhexidine Rinse 15 ML MOUTHWASH MM SCH (21:25)
[2019-11-21] MEDS: Artificial Tears SOLN 15 ML BOTTLE BOTH EYES SCH (21:26)
[2019-11-21 23:15] LABS: Calcium 7.9 mg/dL (8.6-10.3); Potassium 3.6 mEq/L (3.5-5.1)
[2019-11-22] MEDS: Piperacillin/Tazobactam 3.375 GM in 0.9 % Sodium Chloride Mini Bag 100 ML IVPB SCH ×2 (00:36→08:39)
[2019-11-22] MEDS: Artificial Tears SOLN 15 ML BOTTLE BOTH EYES SCH ×4 (00:36→11:27)
[2019-11-22 00:56] LABS: Hemoglobin 11.3 g/dL (12.9-16.9)
[2019-11-22 00:57] LABS: Immature Platelets 11.9 % (1.1-6.1); Mean Corpuscular HGB Conc 34.2 g/dL (31.6-35.5); Mean Corpuscular Hemoglobin 34.8 pg (28.0-33.3); Mean Corpuscular Volume 101.5 fL (83.0-100.0); Mean Platelet Volume 11.6 fL (9.4-12.4); Red Blood Count 3.25 M/mcL (4.19-5.50); Red Cell Distribution Width 13.8 % (11.5-14.5); White Blood Count 3.4 K/mcL (4.3-11.1)
[2019-11-22] MEDS: Dexmedetomidine HCl 400 MCG/100 ML MLS IVC SCH ×4 (02:56→15:33)
[2019-11-22 04:06] LABS: Red Cell Distribution Width 13.8 % (11.5-14.5)
[2019-11-22 04:08] LABS: Basophils % 0.3 %; Hemoglobin 11.6 g/dL (12.9-16.9); Immature Granulocytes % 8.1 % (0-4); Immature Platelets 11.7 % (1.1-6.1); Lymphocytes # 0.6 K/mcL (0.6-4.6); Lymphocytes % 17.9 %; Mean Corpuscular HGB Conc 35.2 g/dL (31.6-35.5); Mean Corpuscular Hemoglobin 34.5 pg (28.0-33.3); Mean Corpuscular Volume 98.2 fL (83.0-100.0); Mean Platelet Volume 12.4 fL (9.4-12.4); Monocytes % 0.6 %; Neutrophils # 2.6 K/mcL (1.6-8.9); Nucleated Red Blood Cells 0.8 /100 WBC (0); Red Blood Count 3.36 M/mcL (4.19-5.50); Segmented Neutrophils % 73.1 %; White Blood Count 3.6 K/mcL (4.3-11.1)
[2019-11-22 04:10] LABS: Platelet Count 46 K/mcL (140-400)
[2019-11-22 04:32] LABS: Platelet Estimate Marked Decrease (Normal)
[2019-11-22 04:33] LABS: Calcium 7.7 mg/dL (8.6-10.3); Magnesium 1.2 mg/dL (1.6-2.6); Potassium 3.3 mEq/L (3.5-5.1)
[2019-11-22 05:14] LABS: ABG Base Excess -4 mEq/L (-2 to 3); ABG HCO3 22 mEq/L (21-27); ABG Oxygen Saturation 92 % (95-98); ABG PCO2 42 mmHg (35-45); ABG PH 7.33 pH Units (7.32-7.45); ABG PO2 68 mmHg (85-104); ABG TCO2 23 mEq/L (20-26); Blood Gas Modality AF; Blood Gas VT 500 cc
[2019-11-22] MEDS ORDERED: Calcium Gluconate 1gm/50mL 1 GM/50 ML BAG IVPB PRN (07:00)
[2019-11-22] MEDS ORDERED: Potassium Phosphate 44 MEQ in 0.9 % Sodium Chloride 250 ML IVPB PRN (07:00)
[2019-11-22] MEDS ORDERED: Potassium Chloride 40 MEQ/200 ML BAG IVPB PRN (07:00)
[2019-11-22] MEDS: Chlorhexidine Rinse 15 ML MOUTHWASH MM SCH (08:39)
[2019-11-22] MEDS ORDERED: Pantoprazole 40 MG VIAL IVP SCH (09:00)
[2019-11-22] MEDS ORDERED: *HR* Heparin 5,000 UNIT/ML VIAL ONE (10:41)
[2019-11-22] MEDS ORDERED: *HR* Dextrose 50 % in Water (Syg) 50 ML SYRINGE IVP PRN (10:57)
[2019-11-22] MEDS ORDERED: Dextrose Gel 15 GM/37.5 ML TUBE PO PRN ×2 (10:57)
[2019-11-22] MEDS ORDERED: D5% in Water 1,000 ML IVC PRN (10:57)
[2019-11-22 11:04] LABS: VBG Ionized Calcium 1.11 mmol/L (1.15-1.35); VBG PH 7.25 pH Units (7.32-7.42)
[2019-11-22 11:10] LABS: Albumin/Globulin Ratio 1.4 (1.1-2.2); Bilirubin,Direct 5.1 mg/dL (0.0-0.2); Bilirubin,Indirect 2.7 mg/dL (0.0-1.0); Bilirubin,Total 7.8 mg/dL (0.3-1.0); Globulin 2.2 g/dL (2.4-3.5); Total Protein 5.2 g/dL (6.4-8.9)
[2019-11-22 11:28] LABS: Phosphorous < 1.0 mg/dL (2.7-4.5)
[2019-11-22] MEDS ORDERED: Insulin LISPRO 300 UNITS/3 ML VIAL SQ SCH (12:00)
[2019-11-22 12:12] LABS: Sodium, Urine 19.5 mEq/L
[2019-11-22] MEDS ORDERED: *HR* Alteplase (Cathflo) 2 MG VIAL IVP PRN (12:37)
[2019-11-22] MEDS ORDERED: *HR* Heparin 5,000 UNIT/ML VIAL CRRT PRN (12:37)
[2019-11-22] MEDS ORDERED: 0.9 % Sodium Chloride 1,000 ML PRIME SCH (12:45)
[2019-11-22] MEDS ORDERED: PrismaSATE BGK 4/2.5 5,000 ML CRRT SCH ×2 (12:45)
[2019-11-22 12:46] LABS: AFP Tumor Marker Non-Pregnant 5 ng/mL (0-9)
[2019-11-22 13:23] LABS: % Iron Saturation 6 % (20-55); BUN/Creatinine Ratio 10 (6-26); Blood Urea Nitrogen 30 mg/dL (6-20); Calcium 7.8 mg/dL (8.6-10.3); Carbon Dioxide 22 mEq/L (23-29); Chloride 97 mEq/L (98-107); Glucose 163 mg/dL (70-105); HDL Cholesterol 7 mg/dL (40-59); Iron 12 mcg/dL (65-175); LDL Cholesterol,Direct 59 mg/dL (75-193); Osmolality,Calculated 284 (280-300); Potassium 3.6 mEq/L (3.5-5.1); Sodium 132 mEq/L (136-145); Transferrin 133 mg/dL (203-362); eGFR For African Americans 29 (> 60); eGFR For Non-African Americans 24 (> 60)
[2019-11-22 13:45] LABS: Acetaminophen < 10 mcg/mL (10-20); Magnesium 1.7 mg/dL (1.6-2.6)
[2019-11-22 14:02] LABS: Basophils % 0.5 %; Eosinophils % 0.5 %; Hematocrit 33.1 % (37.5-50.1); Hemoglobin 11.6 g/dL (12.9-16.9); Immature Granulocytes % 1.5 % (0-4); Lymphocytes # 0.6 K/mcL (0.6-4.6); Lymphocytes % 13.4 %; Mean Corpuscular Hemoglobin 34.6 pg (28.0-33.3); Mean Corpuscular Volume 98.8 fL (83.0-100.0); Mean Platelet Volume 11.6 fL (9.4-12.4); Monocytes # 0.4 K/mcL (0.0-1.3); Monocytes % 8.8 %; Neutrophils # 3.1 K/mcL (1.6-8.9); Nucleated Red Blood Cells 0.5 /100 WBC (0); Red Blood Count 3.35 M/mcL (4.19-5.50); Segmented Neutrophils % 75.3 %; White Blood Count 4.1 K/mcL (4.3-11.1)
[2019-11-22 14:03] LABS: Platelet Count 59 K/mcL (140-400)
[2019-11-22 14:14] LABS: INR 1.3; Prothrombin Time 14.2 Seconds (9.4-12.1)
[2019-11-22 14:27] LABS: Large Platelets Present (Not Present); Platelet Estimate Decreased (Normal); Reactive Lymphocytes Present (Not Present); Toxic Granulation Present (Not Present)
[2019-11-22 16:50] VITALS: BP 95/71
[2019-11-22] MEDS ORDERED: Acetaminophen 650 MG RECTAL SUPP RC ONE (17:24)
[2019-11-23 10:04] LABS: ANA IgG by ELISA NONE DETECTED (None Detected)
[2019-11-23 10:05] LABS: F-Actin (sm muscle) Ab IgG 6 Units (0-19)
[2019-11-24 08:42] LABS: GBM IgG Multiplex Bead Assay 0 AU/mL (0-19); Glomerular Basement Memb IgG NEGATIVE (Negative)
[2019-11-26 23:07] LABS: APTT (LE Anticoag) 84 sec (32-48); Diluted Russell Viper Venom 41 sec (33-44); LE APTT D Heparin Neutralized 46 sec (32-48); LE Coag Reptilase Time 20.9 sec (<=21.9); PT (LE-Anticoag) 15.3 sec (12.0-15.5); Thrombin Time 51.2 sec (14.7-19.5)
== END 2019-11-22 17:40 | disposition short-term general hospital (02) | DRG 438 ==
LOC: 3ANU 15:27 → EMEROOARM 15:27 → SUATTDRO 18:18 → 3ANU 18:52 → ICNU 11-21 06:44
PROVIDERS: ADMIT Internal Medicine; ATTEND Internal Medicine